=== PATIENT | female | born 1970 | race Caucasian/White ===

== ENCOUNTER → 2022-12-14 | Outpatient (CLI) | payer OTHER | LOC: M WHC 15:25 | PROVIDERS: ATTEND Family Medicine | DX: Z12.31 Encounter for screening mammogram for malignant neoplasm of breast (principal) ==

== ENCOUNTER → 2022-12-30 | Outpatient (CLI) | payer OTHER | LOC: M RAD 15:11 | PROVIDERS: ATTEND Obstetrics & Gynecology | DX: N84.1 Polyp of cervix uteri (principal); N93.0 Postcoital and contact bleeding ==

== ENCOUNTER 2023-01-18 10:39 | Day surgery (SDC) | payer OTHER ==
[~2023-01-18] VITALS: Ht 170.2 cm; Wt 71.3 kg
[~2023-01-18 10:39] MED LIST: CETI-24 PO; FLUT50SP17; SPIR50TA4 PO
[2023-01-18] MEDS ORDERED: LR 1,000 ML IV SCH (11:20)
[2023-01-18 11:21] LABS: HEMATOCRIT 39.4 % (36.0-47.0); HEMOGLOBIN 13.4 g/dl (12.0-15.5)
[2023-01-18] MEDS ORDERED: MIDAZOLAM INJ 2MG/2ML VIAL As Ordered ONE (13:16)
[2023-01-18] MEDS ORDERED: fentaNYL 100 MCG/2 ML INJECTION As Ordered ONE (13:16)
[2023-01-18] MEDS ORDERED: LIDOCAINE 2% 100MG/5ML SDV (FOR ANES.) As Ordered ONE (13:18)
[2023-01-18] MEDS ORDERED: propofoL 200 MG/20 ML VIAL As Ordered ONE (13:18)
[2023-01-18] MEDS ORDERED: ONDANSETRON 4MG 2ML VIAL As Ordered ONE (13:18)
[2023-01-18] MEDS ORDERED: KETOROLAC 60MG 2ML VIAL As Ordered ONE (13:18)
[2023-01-18] MEDS ORDERED: SILVER NITRATE APPLICATOR (1 = QTY 10) As Ordered ONE (13:26)
[2023-01-18] MEDS ORDERED: ACETAMINOPHEN 1000MG 100ML IV BAG As Ordered ONE (13:58)
[2023-01-18] MEDS: SCOPOLAMINE 1MG TRANSDERMAL PATCH As Ordered ONE (14:00)
[2023-01-18] MEDS: LIDOCAINE 1% SDV 30ML VIAL As Ordered ONE (14:37)
[2023-01-18] MEDS ORDERED: oxyCODONE 5MG TAB PO PRN ×2 (15:00→15:10)
[2023-01-18] MEDS ORDERED: fentaNYL 100 MCG/2 ML INJECTION IV PRN (15:00)
[2023-01-18] MEDS ORDERED: HYDROMORPHONE HCL 0.5 MG/ 0.5 ML SYRINGE IV PRN (15:00)
[2023-01-18] MEDS ORDERED: ONDANSETRON 4MG 2ML VIAL IV PRN (15:00)
[2023-01-18 16:32] VITALS: BP 117/72; TEMP 97.2; O2SAT 96
== END 2023-01-18 17:12 | disposition home or self-care (01) ==
LOC: M SDC 10:39
PROVIDERS: ATTEND Obstetrics & Gynecology
DX: N84.1 Polyp of cervix uteri (principal); N93.0 Postcoital and contact bleeding; Z88.2 Allergy status to sulfonamides
CPT/HCPCS: 36415; 58558; 81025; 85014; 85018; 88305; J0131; J1100; J1885; J2250; J2405; J3010

== ENCOUNTER → 2023-12-08 | Outpatient (CLI) | payer OTHER ==
[~2023-12-08] MED LIST changes: -FLUT50SP17; +FLUTISP
== END ==
LOC: M WHC 13:12
PROVIDERS: ATTEND Family Medicine
DX: Z12.31 Encounter for screening mammogram for malignant neoplasm of breast (principal)

== ENCOUNTER → 2024-12-10 | Outpatient (CLI) | payer OTHER | LOC: M WHC 16:30 | PROVIDERS: ATTEND Family Medicine | DX: Z12.31 Encounter for screening mammogram for malignant neoplasm of breast (principal) ==

== ENCOUNTER 2025-02-10 12:25 | Emergency (ER) | payer OTHER ==
[2025-02-10 12:39] VITALS: TEMP 97.4
[2025-02-10 13:11] LABS: BASO # 0.1 10^3/uL (0.0-0.2); BASO % 0.6 % (0.0-1.0); EOS # 0.1 10^3/uL (0.0-0.5); EOS % 0.9 % (0.0-3.0); LYMPH # 1.7 10^3/uL (1.5-5.0); LYMPH % 21.7 % (24.0-44.0); MONO # 0.6 10^3/uL (0.0-0.8); MONO % 7.6 % (2.0-8.0); NEUTROPHILS # 5.4 10^3/uL (1.5-8.5); NEUTROPHILS % 69.1 % (36.0-66.0); PLATELET COUNT, AUTOMATED 275 10^3/uL (150-450)
[2025-02-10] MEDS: ASPIRIN 81 MG CHEWABLE TABLET PO ONE (13:33)
[2025-02-10 13:40] LABS: ALT/SGPT 19 U/L (7.0-40); AST/SGOT 18 U/L (<34); CALCIUM LEVEL 9.2 MG/DL (8.5-10.1); CARBON DIOXIDE LEVEL 27 MMOL/L (20-31); CHLORIDE LEVEL 103 MMOL/L (98-107); CK-MB VALUE MASS < 1.0 NG/ML (<3.6); CREATININE FOR GFR 0.83 MG/DL (0.55-1.30); GLOMERULAR FILTRATION RATE 84.8 (>51); POTASSIUM SERUM 4.5 MMOL/L (3.5-5.1); SODIUM LEVEL 140 MMOL/L (136-145)
[2025-02-10 13:42] LABS: FREE T4 1.25 NG/DL (0.89-1.76)
[2025-02-10 13:44] LABS: CPK CREATINE PHOSPHOKINASE 57 U/L (34-145)
[2025-02-10 13:45] VITALS: O2SAT 99
[2025-02-10] MEDS ORDERED: ISOVUE-370 76% 100 ML VIAL As Ordered ONE (13:59)
[2025-02-10 14:16] LABS: CK-MB VALUE MASS < 1.0 NG/ML (<3.6)
[2025-02-10 14:21] LABS: CPK CREATINE PHOSPHOKINASE 57 U/L (34-145)
[2025-02-10 15:32] VITALS: BP 108/65
== END 2025-02-10 15:35 | disposition home or self-care (01) ==
LOC: M ED 12:25
DX: R07.9 Chest pain, unspecified (principal); N83.201 Unspecified ovarian cyst, right side; N83.202 Unspecified ovarian cyst, left side; F10.10 Alcohol abuse, uncomplicated; Z88.2 Allergy status to sulfonamides; Z79.899 Other long term (current) drug therapy
CPT/HCPCS: 36415; 71045; 71275; 74174; 80048; 80076; 82550; 82553; 83690; 83880; 84439; 84443; 84484; 85025; 85730; 93005; 93041; 94760; 99284; Q9967

== ENCOUNTER 2025-02-20 21:45 | Emergency (ER) | payer OTHER ==
[~2025-02-20] VITALS: Ht 170.2 cm; Wt 73.1 kg
[2025-02-20] MEDS ORDERED: OMEP40CA5 (21:53)
[2025-02-20] MEDS ORDERED: PROG1CAP9 (21:53)
[2025-02-20] MEDS ORDERED: HYDR-643 (21:53)
[2025-02-20] MEDS ORDERED: ESTR1DIS3 (21:53)
[2025-02-20] MEDS ORDERED: SUCR1ORA (21:53)
[2025-02-21 00:55] VITALS: BP 114/67; TEMP 98; O2SAT 98
== END 2025-02-21 00:55 | disposition home or self-care (01) ==
LOC: M ED 21:45
DX: T18.9XXA Foreign body of alimentary tract, part unspecified, initial encounter (principal); Z88.2 Allergy status to sulfonamides; Z79.899 Other long term (current) drug therapy; Y92.009 Unspecified place in unspecified non-institutional (private) residence as the place of occurrence of the external cause